=== PATIENT | female | born 1945 | race Caucasian/White ===

== ENCOUNTER 2018-10-10 10:36 | Emergency (ER) | payer MEDICARE, BC, SELFPAY ==
[2018-10-10 10:37] VITALS: BP 162/93; PULSE 61; RESP 16; TEMP 37.1; O2SAT 97; BMI 33.6
--- NOTE | 2018-10-10 10:55 | RAD_ITS ---
STUDY: X-RAY - LEFT KNEE REASON FOR EXAM: Female, 73 years old. Left leg pain and swelling TECHNIQUE: 4 view(s) of the knee. COMPARISON: None. FINDINGS: No acute displaced fracture, or traumatic subluxation based on current assessment. Mild narrowing of the joint space in the medial compartment. Mild to moderate joint effusion. The soft tissue structures are unremarkable. RAD/Knee 4 or More Views IMPRESSION: Mild osteoarthritis. Mild to moderate joint effusion. No acute displaced fracture, or traumatic subluxation based on current assessment. Electronically Signed: Star Pizano MD at 12:23 EDT Tel [phone], Service support ,
--- NOTE | 2018-10-10 10:55 | VDLE_ITS ---
Reason For Study: swelling RIGHT LEFT CFV is compressible, spontaneous, phasic, GSV is normal. competent and demonstrates normal CFV is compressible, spontaneous, phasic, augmentation. competent, and demonstrates normal Procedure augmentation. Exam performed portable in ED. FV is compressible, spontaneous, phasic, The exam was diagnostic. competent and demonstrates normal A preliminary report was called and/or faxed augmentation. to Dr. Quintero. POP V is compressible, spontaneous, phasic, competent and demonstrates normal augmentation. T/P Trunk is compressible. PTV is compressible. LT PerV is compressible. Hypoechoic area behind the knee measuring 2.42 x 1.67 cm. Area is nonvascular. Interpretation Summary There is no evidence of left lower extremity deep vein thrombosis. Left great saphenous vein appears patent and compressible segmentally. Left popliteal fossa 2.42 x 1.67cm cystic structure consistent with a Ascencio's cyst. Ordering Physician: Laurie Quintero Performed By: Kaushik Bianchi RVPravin
--- NOTE | 2018-10-10 13:00 | ED.VISSUMM ---
- ER Visit Summary Date of Service: 10/10/18 Chief Complaint: [Left leg pain] History of Present Illness: The patient is a 73 F [the emergency department with pain in her left leg for about a week. Patient states that she was diagnosed with a Ascencio's cyst about a month ago but has not followed up with anybody for it. Pain is worsened over the last week where she is complaining of pain in the upper leg as well as into her calf. Patient is noted some swelling in her knee. Patient denies any injury to the leg. She denies any chest pain or shortness of breath out of the ordinary. Patient has history of borderline diabetes. Has recent travel or surgery.] Physical Examination: [HEENT-PERRLA, EOMI. Cranial nerves II through XII grossly intact. TMs clear. Mucous membranes moist. No adenopathy. Cardiovascular-regular rate and rhythm without murmur or ectopy Lungs-clear to auscultation, chest wall stable without crepitus or subcu emphysema Abdomen-normoactive bowel sounds, soft, nontender, no rebound or rigidity, no peritoneal signs. Extremities-intact ?4, normal range of motion, normal pulses, atraumatic. Left knee-patient does have a joint effusion. There is no erythema or warmth noted. Patient is ligamentously stable. No significant bony tenderness on exam. Patient has mild tenderness over the left calf.] She is neurovascular intact. Test Results: [Venous duplex obtained was negative for DVT patient was noted to have a large hyperechoic cyst consistent with a Ascencio's cyst.. Patient also had x-rays of the left knee which showed a mild to moderate effusion and osteoarthritis changes.] Emergency Department Course and Treatment: [] Treatment Plan: [Patient will be given prescription for [place] for pain. Patient will be referred to her orthopedic physician for follow-up. I do not suspect patient to have a septic joint.] Disposition: [Discharged home stable condition] Impression: [Ascencio's cyst left knee Osteoarthritis left knee Left knee joint effusion] This note was generated with [employer] dictation software. It may contain incorrect words, spelling, and punctuation that were not noted in review of the chart prior to signing ED Disposition - Plan for ED Patient: Referrals: Care Physician,No Primary [Primary Care Provider] -
--- NOTE | 2018-10-10 13:03 | ED.DEP ---
ED Disposition - Plan for ED Patient: Instructions: Knee Effusion, Ascencio's Cyst Prescriptions: Hydrocodone Bitart/Apap 5-325 [[place] 5MG-325MG] 1 tab PO Q4H PRN PRN 2 Days #14 tab PRN Reason: Pain Prescription Printed Referrals: Care Physician,No Primary [Primary Care Provider] - Thompson Vallejo MD [STAFF PHYSICIAN] - 3-5 Days
== END 2018-10-10 13:21 | disposition home or self-care (01) ==
PROVIDERS: Emergency Provider Emergency Medicine
DX: M71.22 Synovial cyst of popliteal space [Baker], left knee (principal); M17.12 Unilateral primary osteoarthritis, left knee; M25.462 Effusion, left knee; R06.00 Dyspnea, unspecified; R73.03 Prediabetes
CPT/HCPCS: 73564; 93971; 99282